=== PATIENT | male | born 1975 | race African-American/Black ===

== ENCOUNTER 2023-07-24 14:36 | Emergency (ER) | payer OTHER ==
[~2023-07-24] VITALS: Ht 167.6 cm; Wt 100.0 kg
[2023-07-24] MEDS ORDERED: CeFAZolin 1 GM/DEXTROSE 50 ML IV ONE (15:30)
[2023-07-24 16:08] LABS: BASOPHILS % (AUTO) 0.9 % (0.0-2.0); EOSINOPHILS % (AUTO) 2.6 % (1.0-6.0); HEMATOCRIT 38.6 % (41-53); HEMOGLOBIN 12.2 g/dL (13.5-17.5); LYMPHOCYTES # (AUTO) 1.6 K/uL (1.0-4.8); LYMPHOCYTES % (AUTO) 20.7 % (22.0-44.0); MEAN CORPUSCULAR HGB CONC 31.7 G/dL (31.0-37.0); MEAN CORPUSCULAR VOLUME 91 fL (80-100); MONOCYTES # (AUTO) 0.7 K/uL (0.1-1.0); MONOCYTES % (AUTO) 8.8 % (2.0-9.0); NEUTROPHILS # (AUTO) 5.3 K/uL (1.8-7.7); PLATELET COUNT (AUTO) 260 K/uL (150-450); RED BLOOD CELL COUNT(AUTO) 4.23 MIL/uL (4.50-5.90); RED CELL DISTRIBUTION WIDTH 13.4 % (11.5-14.5); WHITE BLOOD COUNT (AUTO) 7.8 K/uL (4.5-11.0)
[2023-07-24 16:17] LABS: ANION GAP 5 mmol/L (8-16); CALCIUM, TOTAL 8.6 mg/dL (8.8-10.5); CARBON DIOXIDE 32 mmol/L (22-29); CHLORIDE 103 mmol/L (98-107); GLOMERULAR FILTR. RATE CALC > 60 mL/min (>60); GLUCOSE,RANDOM 239 mg/dL (70-110); SODIUM SERUM 140 mmol/L (136-145); UREA NITROGEN, BLOOD 13 mg/dL (7-18)
[2023-07-24 16:21] LABS: PROTHROMBIN TIME 10.3 SEC (9.4-11.6)
[2023-07-24 16:22] LABS: B-TYPE NATRIURETIC PEPTIDE < 5 pg/mL (0-100)
[2023-07-24 16:23] LABS: ALANINE AMINOTRANSFERASE 19 U/L (12-78); ALBUMIN 3.2 g/dL (3.4-5.0); ALKALINE PHOSPHATASE 77 U/L (46-116); ASPARTATE AMINOTRANSFERASE 17 U/L (15-37); BILIRUBIN,TOTAL 0.3 mg/dL (0.1-1.0); TOTAL PROTEIN, SERUM 6.7 g/dL (6.4-8.2)
[2023-07-24] MEDS ORDERED: SODIUM CHLORIDE 0.9% 100 ML ONE (17:26)
[2023-07-24] MEDS ORDERED: IOHEXOL 350 MG/ML 150 ML VIAL ONE (17:26)
[2023-07-24 20:38] VITALS: BP 148/89; PULSE 92; RESP 14; TEMP 98.3
== END 2023-07-24 21:48 ==
LOC: EDBD 14:41 → EMS 14:41
DX: S61.532A Puncture wound without foreign body of left wrist, initial encounter (principal); S71.132A Puncture wound without foreign body, left thigh, initial encounter; X95.8XXA Assault by other firearm discharge, initial encounter; Y93.89 Activity, other specified; Y92.89 Other specified places as the place of occurrence of the external cause; Y99.8 Other external cause status
CPT/HCPCS: 99285; 73201; 96365; 80053; 83880; 85025; 85610; 85730; 86850; 86900; 86901; 36415; 73110; 73701; 93005; J0690; Q9967; J7050